=== PATIENT | female | born 1985 | race Caucasian/White ===

== ENCOUNTER 2019-06-06 06:58 | Emergency (ER) | payer MEDICAID, OTHER ==
[~2019-06-06] VITALS: Ht 160 cm; Wt 56.7 kg
[2019-06-06] MEDS ORDERED: SODIUM CHLORIDE 0.9% 1,000 ML IV ONE (07:48)
[2019-06-06 07:57] VITALS: BP 113/77
[2019-06-06] MEDS ORDERED: LORazepam 2MG/ML-1ML VIAL IV ONE (08:00)
[2019-06-06 08:14] LABS: Basophils # (auto) 0.1 uL; Eosinophils # (auto) 0.1 uL; Eosinophils % (auto) 1.9 % (0.0-7.0); Hematocrit 36.3 % (36.0-46.0); Hemoglobin 12.4 g/dL (12.2-16.2); Lymphocytes % (auto) 17.4 % (10.0-50.0); Mean Corpuscular Hemoglobin 31.1 pg (28.0-32.0); Mean Corpuscular Hgb Conc. 34.2 g/dL (32.0-36.0); Mean Corpuscular Volume 90.8 fL (80.0-100.0); Monocytes # (auto) 0.3 uL; Monocytes % (auto) 5.7 % (0.0-12.0); Neutrophils # (auto) 4.1 uL; Platelet Count (auto) 227 10^3/uL (140-450); Red Cell Distribution Width 13.5 % (11.8-14.3); White Blood Cell 5.5 10^3/uL (4.4-10.8)
[2019-06-06 08:37] LABS: Albumin 3.2 g/dL (3.4-5.0); BUN/Creatinine Ratio 28.2; Bilirubin, Total 0.2 mg/dL (0.2-1.0); Magnesium 2.3 mg/dL (1.6-2.6); Total Protein 6.2 g/dL (6.4-8.2)
[2019-06-06 08:40] LABS: Urine Bacteria NONE SEEN /hpf (None Seen); Urine Blood Negative /uL (Negative); Urine Mucus FEW (None Seen); Urine Specific Gravity 1.018 (1.001-1.035); Urine WBC 2 /hpf (0 - 5)
[2019-06-06 08:47] LABS: Alcohol, Urine < 3.0 mg/dL (0-5); Amphetamine Screen, Urine NEGATIVE (NEGATIVE); Barbiturate Scree,Urine NEGATIVE (NEGATIVE); Benzodiazephine Screen, Urine NEGATIVE (NEGATIVE); Cannabinoid Screen, Urine NEGATIVE (NEGATIVE); Cocaine Screen, Urine NEGATIVE (NEGATIVE); Opiate Scree,Urine NEGATIVE (NEGATIVE); Phencyclidine Screen, Urine NEGATIVE (NEGATIVE)
== END 2019-06-06 10:58 | disposition home or self-care (01) ==
LOC: EDBD 06:58 → ER 07:01
DX: G40.909 Epilepsy, unspecified, not intractable, without status epilepticus (principal); N39.0 Urinary tract infection, site not specified; E46 Unspecified protein-calorie malnutrition; Z68.22 Body mass index [BMI] 22.0-22.9, adult
CPT/HCPCS: 36415; 70450; 71046; 80053; 80307; 81001; 81025; 83735; 85025; 96374; 99284; J2060; J7030

== ENCOUNTER 2019-06-11 21:33 | Emergency (ER) | payer MEDICAID ==
[~2019-06-11] VITALS: Ht 162.6 cm; Wt 56.7 kg
[2019-06-11 22:32] VITALS: BP 128/79
[2019-06-11 22:47] LABS: Basophils # (auto) 0 uL; Basophils % (auto) 0.5 % (0.0-2.0); Eosinophils # (auto) 0.1 uL; Eosinophils % (auto) 2.6 % (0.0-7.0); Hematocrit 36.8 % (36.0-46.0); Hemoglobin 12.6 g/dL (12.2-16.2); Lymphocytes # (auto) 1.2 uL; Lymphocytes % (auto) 30.4 % (10.0-50.0); Mean Corpuscular Hemoglobin 30.9 pg (28.0-32.0); Mean Corpuscular Hgb Conc. 34.3 g/dL (32.0-36.0); Mean Corpuscular Volume 90.2 fL (80.0-100.0); Monocytes # (auto) 0.3 uL; Monocytes % (auto) 7.9 % (0.0-12.0); Neutrophils # (auto) 2.3 uL; Neutrophils % (auto) 58.6 % (37.0-80.0); Nucleated Red Blood Cells % 0.1 %; Platelet Count (auto) 250 10^3/uL (140-450); Red Blood Cells 4.08 10^6/uL (4.0-5.20); Red Cell Distribution Width 13.4 % (11.8-14.3); White Blood Cell 3.9 10^3/uL (4.4-10.8)
[2019-06-11 22:51] LABS: Albumin 3.6 g/dL (3.4-5.0); Anion Gap 6 (5-15); Blood Urea Nitrogen 17 mg/dL (7-18); Calcium 8.9 mg/dL (8.5-10.1); Carbon Dioxide 27 mmol/L (21-32); Chloride 106 mmol/L (98-107); Glucose 62 mg/dL (74-106); Potassium 3.9 mmol/L (3.5-5.1); Sodium 139 mmol/L (136-145)
[2019-06-11 22:54] LABS: Alanine Aminotransferase 22 U/L (13-56); Aspartate Aminotransferase 14 U/L (15-37); Blood Alcohol < 3.0 mg/dL (0-5); GFR African American 100 mL/min; GFR Non-African American 82 mL/min
[2019-06-11 22:57] LABS: Alkaline Phosphatase 46 U/L (45-117); Bilirubin, Total 0.2 mg/dL (0.2-1.0); Total Protein 6.4 g/dL (6.4-8.2)
[2019-06-11 23:25] LABS: Urine Bacteria FEW /hpf (None Seen); Urine Blood Negative /uL (Negative); Urine Hyaline Cast FEW /lpf (0 - 2); Urine Mucus FEW (None Seen); Urine Specific Gravity 1.023 (1.001-1.035); Urine WBC 40 /hpf (0 - 5)
[2019-06-11 23:40] LABS: Alcohol, Urine < 3.0 mg/dL (0-5); Amphetamine Screen, Urine NEGATIVE (NEGATIVE); Barbiturate Scree,Urine NEGATIVE (NEGATIVE); Benzodiazephine Screen, Urine NEGATIVE (NEGATIVE); Cannabinoid Screen, Urine NEGATIVE (NEGATIVE); Cocaine Screen, Urine NEGATIVE (NEGATIVE); Opiate Scree,Urine NEGATIVE (NEGATIVE); Phencyclidine Screen, Urine NEGATIVE (NEGATIVE)
[2019-06-11] MEDS ORDERED: LORazepam 2MG/ML-1ML VIAL IV ONE (23:45)
== END 2019-06-12 | disposition home or self-care (01) ==
LOC: EDBD 21:33 → ER 21:42
DX: S00.512A Abrasion of oral cavity, initial encounter (principal); G40.409 Other generalized epilepsy and epileptic syndromes, not intractable, without status epilepticus; X58.XXXA Exposure to other specified factors, initial encounter; Y93.89 Activity, other specified; Y99.8 Other external cause status; Y92.89 Other specified places as the place of occurrence of the external cause
CPT/HCPCS: 36415; 70450; 80053; 80307; 80320; 81001; 85025; 96374; 99284; J2060